=== PATIENT | female | born 1990 | race Caucasian/White ===

== ENCOUNTER 2017-12-19 22:11 | Emergency (ER) | payer SELFPAY ==
[~2017-12-19] VITALS: Ht 157.4 cm; Wt 89.8 kg
[~2017-12-19 22:11] MED LIST: ATIVAN0.5 MG PO; ATIVAN1 MG PO; AUGMENTIN 875 M1 TAB PO; BACTRIM DS 8001 TA1 PO; BIAXIN500 MG PO; CARAFATE PO; CLARITIN10 MG PO; DAILY VALUE1 EACH PO; FAMOTIDINE20 M1 PO; KEFLEX250 MG PO; NAPROSYN500 MG PO; PEPCID20 MG PO; PRENATAL1 TA1 PO; ROXICET PO; ZOFRAN4 MG PO
== END 2017-12-20 00:03 | disposition home or self-care (01) ==
LOC: ED 22:11
DX: S40.021A Contusion of right upper arm, initial encounter (principal); F17.200 Nicotine dependence, unspecified, uncomplicated; Z90.89 Acquired absence of other organs; Z98.890 Other specified postprocedural states; Z88.8 Allergy status to other drugs, medicaments and biological substances; W50.0XXA Accidental hit or strike by another person, initial encounter; Y93.89 Activity, other specified; Y92.89 Other specified places as the place of occurrence of the external cause; Y99.9 Unspecified external cause status

== ENCOUNTER → 2025-01-07 | Outpatient (CLI) | payer BC ==
[2025-01-07 10:29] LABS: BASO % 0.2 % (0.0-1.0); EOS # 0.2 10*3/uL (0.0-0.4); EOS % 3.4 % (1.0-4.0); HEMATOCRIT 39.1 % (37.0-47.0); MEAN CELL VOLUME 90.5 fl (81.0-99.0); MEAN CORPUSCULAR HGB 28.9 pg (27.0-31.0); MEAN PLATELET VOLUME 9.5 fl (9.6-12.3); MONO # 0.4 10*3/uL (0.1-1.0); MONO % 6.4 % (3.0-9.0); NEUT # 3.9 10*3/uL (2.3-7.9); NEUT % 61.1 % (47.0-73.0); PLATELET COUNT AUTOMATED 275 10*3/uL (130-400); RED BLOOD COUNT 4.32 10*6/uL (4.10-5.10); RED CELL DISTRI WIDTH 12.2 % (0-14.5); WHITE BLOOD COUNT 6.4 10*3/uL (4.8-10.8)
[2025-01-07 11:01] LABS: ALKALINE PHOSPHATASE 40 U/L (46-116); BUN 12 mg/dl (9-23); CHLORIDE 106 mmol/L (98-107); CHOLESTEROL 141 mg/dL (<200); FREE T4 1.26 ng/dl (0.89-1.76); LDL CHOLESTEROL 85 mg/dL (9-159); POTASSIUM 3.8 mmol/L (3.4-5.1); SGPT/ALT 10 U/L (5-49); TOTAL PROTEIN 6.8 gm/dL (6.0-8.0); TRIGLYCERIDES 55 mg/dl (<150)
[2025-01-08 16:08] LABS: ANTICARDIOLIPIN AB, IGG, QN <9 GPL U/mL (0-14); ANTICARDIOLIPIN AB, IGM, QN <9 MPL U/mL (0-12)
[2025-01-09 01:06] LABS: HEXAGONAL PHASE PHOSPHOLIPID 9 sec (0-11); LUPUS DRVVT 38.8 sec (0.0-47.0); PTT-LA 57.5 sec (0.0-43.5); PTT-LA MIX 45.1 sec (0.0-40.5)
[2025-01-09 02:06] LABS: LUPUS REFLEX INTERPRETATION Comment: (.)
[2025-01-09 14:07] LABS: PROTEIN S, TOTAL 52 % (60-150)
[2025-01-10 16:07] LABS: PROTEIN C, ANTIGEN 99 % (60-150)
== END | disposition home or self-care (01) ==
LOC: CARD 08:30 → LAB 09:13
PROVIDERS: ATTEND Internal Medicine
DX: I35.1 Nonrheumatic aortic (valve) insufficiency (principal); D64.9 Anemia, unspecified; E53.9 Vitamin B deficiency, unspecified; E55.9 Vitamin D deficiency, unspecified; M25.50 Pain in unspecified joint; G89.29 Other chronic pain; R53.83 Other fatigue; R53.81 Other malaise

== ENCOUNTER → 2025-01-21 | Outpatient (CLI) | payer BC | END | disposition home or self-care (01) | LOC: MAMMO 01-13 15:30 | PROVIDERS: ATTEND Internal Medicine | DX: Z12.31 Encounter for screening mammogram for malignant neoplasm of breast (principal); R92.333 Mammographic heterogeneous density, bilateral breasts; R59.0 Localized enlarged lymph nodes ==

== ENCOUNTER 2025-05-13 16:22 | Emergency (ER) | payer BC ==
[~2025-05-13] VITALS: Ht 160 cm; Wt 68.0 kg
[2025-05-13] MEDS ORDERED: ATIVAN1 MG PO (17:07)
[2025-05-13] MEDS ORDERED: CYCLOBENZAPRINE5 M3 PO (17:07)
[2025-05-13] MEDS ORDERED: OMEPRAZOLE MAGN20 MG PO (17:08)
[2025-05-13] MEDS ORDERED: IBUPROFEN 600 MG TAB PO ONE (17:35)
== END 2025-05-13 20:27 | disposition home or self-care (01) ==
LOC: ED 16:22
DX: S09.90XA Unspecified injury of head, initial encounter (principal); Z79.899 Other long term (current) drug therapy; Z88.8 Allergy status to other drugs, medicaments and biological substances; F17.200 Nicotine dependence, unspecified, uncomplicated; W01.0XXA Fall on same level from slipping, tripping and stumbling without subsequent striking against object, initial encounter; Y93.89 Activity, other specified; Y92.89 Other specified places as the place of occurrence of the external cause; Y99.8 Other external cause status